=== PATIENT | female | born 1950 | race Caucasian/White ===

== ENCOUNTER 2020-03-15 08:44 | Outpatient (CLI) | payer MEDICARE, SELFPAY ==
--- NOTE | ~2020-03-15 | DEXA_ITS ---
Bone Density Report Name: Kendra Gomes Age: 70 Sex: Female Ethnicity: White Date of : 1950 Indication: postmenopausal; height loss; hysterectomy; Referring Provider: CHADD MONK Study: Bone densitometry was performed. Exam Date: March 15, 2020 Accession number: [id number] Bone Density: Region BMD T-score Z-score Classification AP Spine (L1-L4) 1.136 0.8 3.0 Normal Femoral Neck (Left) 0.705 -1.3 0.6 Osteopenia Total Hip (Left) 0.853 -0.7 0.8 Normal Total Hip Bilateral Avg 0.834 -0.9 0.7 Normal Femoral Neck (Right) 0.669 -1.6 0.2 Osteopenia Total Hip (Right) 0.813 -1.1 0.5 Osteopenia World Health Organization criteria for BMD impression classify patients as: Normal (T-score at or above -1.0), Osteopenia (T-score between -1.0 and -2.5), or Osteoporosis (T-score at or below -2.5). 10-year Fracture Risk(1): Major Osteoporotic Fracture 9.8% Hip Fracture 1.7% Reported Risk Factors: [place] (), Neck BMD=0.669, BMI=22.1 (1) FRAX(R) Version 3.08. Fracture probability calculated for an untreated patient. Fracture probability may be lower if the patient has received treatment. Clinical Information Provided by Patient: Has used the following medications: Calcium Has the following medical conditions: Hysterectomy Patient maximum height was 65 Menopause Age: 40 No regular weight bearing exercise Does not regularly consume dairy products Drinks caffeinated beverages Onset of menses at age 12 Number of children 2 Impression: The patient has low bone mass, based on the Right Femoral Neck T-score. The patient has an estimated ten-year risk of hip fracture of 1.7% and an estimated ten-year risk of major fracture of 9.8%, based on the WHO FRAX algorithm. Discussion: BONE DENSITY IS LOW AT ONE OR MORE SKELETAL SITES. This patient's lowest T-score is low at one or more skeletal sites. It meets the World Health Organization's (WHO) criteria for ?low bone mass? (T-score between -1.0 and -2.5). The patient's 10-year risk of fracture as calculated by FRAX is less than the threshold where pharmacological therapy is recommended by the National Osteoporosis Foundation (NOF). However, all treatment decisions require clinical judgment and consideration of individual patient factors, including patient preferences, comorbidities, previous drug use, risk factors not captured in the FRAX model (e.g., frailty, falls, vitamin D deficiency, increased bone turnover, interval significant decline in bone density) and possible under or overestimation of fracture risk by FRAX. The patient should follow a healthful lifestyle (good nutrition with adequate calcium and vitamin D, and appropriate weight-bearing exercise). Follow-Up: Consider repeating this study in 2 to 3 years to reassess this patient's status, or soon
--- NOTE | ~2020-03-15 | MM_ITS ---
EXAMINATION: MM screening [facility] BI w cullen HISTORY: Screening mammogram TECHNIQUE: Craniocaudal and mediolateral oblique 3-D tomosynthesis images were obtained and synthetic 2-D images were generated. CAD analysis was submitted and interpreted. COMPARISON: 02/13/2019, 02/01/2018 BREAST PARENCHYMAL COMPOSITION: There are scattered areas of fibroglandular density. FINDINGS: There is no evidence of suspicious mass, calcification, or architectural distortion to sugg est malignancy in either breast. There has been no suspicious interval change. IMPRESSION: 1. No mammographic evidence of malignancy. 2. Recommend routine screening mammography in one year. BI-RADS Category 1: Negative Reviewed, dictated and finalized at location A.
== END 2020-03-15 08:45 | disposition home or self-care (01) ==
PROVIDERS: PCP Family Medicine; Visit Provider Family Medicine
DX: Z12.31 Encounter for screening mammogram for malignant neoplasm of breast (principal); Z78.0 Asymptomatic menopausal state; M85.89 Other specified disorders of bone density and structure, multiple sites
CPT/HCPCS: 77063; 77067; 77080

== ENCOUNTER 2020-04-23 10:21 | Outpatient (CLI) | payer MEDICARE, SELFPAY ==
--- NOTE | ~2020-04-23 | MR_ITS ---
EXAMINATION: MR brain/brain stem wo con DATE: 04/23/2020 11:33 INDICATION: Other specified nonpsychotic mental disorders. Disorientation. TECHNIQUE: Magnetic resonance imaging (MRI) of the brain and brainstem was performed without intraven ous contrast. Sequences included sagittal and axial T1-weighted FSE, axial diffusion-weighted FS EPI, axial T2*-weighted GRE, axial T2-weighted FLAIR Propeller, and axial T2-weighted Propeller. Apparent diffusion coefficient (ADC) maps were created. COMPARISON: None. FINDINGS: There is no intracranial hemorrhage, acute infarction, or abnormal intracranial mass lesion . There are scattered areas of nonspecific increased T2-weighted signal intensity in the cerebral whi te matter, which is within normal limits for the patient's age. The ventricles are normal in size. Th e paranasal sinuses are clear. There are likely changes of ocular lens replacement surgeries. The mas toid air cells are normal. IMPRESSION: 1. Normal aging brain. Reviewed, dictated and finalized at location A. IMPRESSION: 1. Normal aging brain.
== END 2020-04-23 10:22 | disposition home or self-care (01) ==
PROVIDERS: PCP Family Medicine; Visit Provider Family Medicine
DX: F48.8 Other specified nonpsychotic mental disorders (principal); R41.0 Disorientation, unspecified
CPT/HCPCS: 70551

== ENCOUNTER 2020-06-23 09:24 | Outpatient (CLI) | payer MEDICARE, SELFPAY ==
--- NOTE | ~2020-06-23 | XR_ITS ---
EXAMINATION: XR chest 2V 06/23/2020 09:48 INDICATION: Chronic fatigue PROCEDURE: PA and lateral views of the chest COMPARISON: 12/07/2016 FINDINGS: The lungs are clear. The cardiomediastinal silhouette is within normal limits. There are no pleural effusions. There is no pneumothorax suspected. IMPRESSION: 1: NO ACUTE CARDIOPULMONARY DISEASE. Reviewed, dictated and finalized at location B. AGENT
== END 2020-06-23 09:25 | disposition home or self-care (01) ==
PROVIDERS: PCP Family Medicine; Visit Provider Family Medicine
DX: R53.82 Chronic fatigue, unspecified (principal)
CPT/HCPCS: 71046

== ENCOUNTER 2021-03-16 08:56 | Outpatient (CLI) | payer MEDICARE, SELFPAY ==
--- NOTE | ~2021-03-16 | MM_ITS ---
EXAMINATION: MM screening [facility] BI w cullen HISTORY: Screening mammogram TECHNIQUE: Craniocaudal and mediolateral oblique 3-D tomosynthesis images were obtained and synthetic 2-D images were generated. CAD analysis was submitted and interpreted. COMPARISON: 03/15/2020, 02/13/2019, 02/01/2018 BREAST PARENCHYMAL COMPOSITION: There are scattered areas of fibroglandular density. FINDINGS: There is no evidence of suspicious mass, calcification, or architectural distortion to sugg est malignancy in either breast. There has been no suspicious interval change. IMPRESSION: 1. No mammographic evidence of malignancy. 2. Recommend routine screening mammography in one year. BI-RADS Category 1: Negative Reviewed, dictated and finalized at location A.
== END 2021-03-16 08:57 | disposition home or self-care (01) ==
PROVIDERS: PCP Family Medicine; Visit Provider Family Medicine
DX: Z12.31 Encounter for screening mammogram for malignant neoplasm of breast (principal)
CPT/HCPCS: 77063; 77067

== ENCOUNTER 2021-05-16 14:25 | Outpatient (CLI) | payer MEDICARE, SELFPAY ==
--- NOTE | ~2021-05-16 | US_ITS ---
EXAMINATION: US carotid duplex BI DATE: 05/16/2021 15:19 INDICATION: Heart problems. Atherosclerosis. TECHNIQUE: Grayscale, color Doppler, and pulsed Doppler images of the cervical carotid arteries were obtained. The degree of vessel stenosis is placed in one of the following categories: normal, <50%, 5 0-69%, >=70% but less than near-occlusion, near-occlusion, or total occlusion. Note that percent sten osis relative to normal distal artery lumen diameter is indirectly measured from velocity measurement s as described by Tanner, et al. Radiology 2003; 229:340-346. Notes: Normal: Peak systolic velocity <125 centimeters/sec and no plaque <50%. Peak systolic velocity <125 ( EDV <40; ICA/CCA PSV ratio <2.0; used these factors only a tandem lesions or low cardiac output or co ntralateral disease) 50-69 %: PSV 125-230 (EDV 40-100; ratio 2-4) >= 70% but less than near occlusion: PSV greater than 230 (EDV > 100; ratio> 4.0) Near Occlusion: PSV that is variable; markedly narrowed lumen Occlusion: Absent flow on color/spectral Doppler and no lumen on arzate scale. COMPARISON: None. FINDINGS: RIGHT: The right common carotid artery (CCA) peak systolic velocity (PSV) is 114 cm/s. The right internal ca rotid artery (ICA) PSV is 96 cm/s. The right ICA end-diastolic velocity (EDV) is 22 cm/s. The right I CA/CCA PSV ratio is 0.8. The external carotid artery (ECA) PSV is 125 cm/s. There is antegrade flow i n the right vertebral artery. LEFT: The left CCA PSV is 116 cm/s. The left ICA PSV is 130 cm/s. The left ICA EDV is 27 cm/s. The left ICA /CCA PSV ratio is 1.1. The ECA PSV is 86 cm/s. There is antegrade flow in the left vertebral artery. IMPRESSION: 1. Less than 50% stenosis in the right internal carotid artery by sonographic criteria. 2. 50-69% stenosis in the left internal carotid artery by sonographic criteria. Reviewed, dictated and finalized at location A. IMPRESSION: 1. Less than 50% stenosis in the right internal carotid artery by sonographic c riteria. 2. 50-69% stenosis in the left internal carotid artery by sonographic criteria.
== END 2021-05-16 14:26 | disposition home or self-care (01) ==
PROVIDERS: PCP Family Medicine; Visit Provider Family Medicine
DX: R09.89 Other specified symptoms and signs involving the circulatory and respiratory systems (principal); I65.23 Occlusion and stenosis of bilateral carotid arteries
CPT/HCPCS: 93880

== ENCOUNTER 2021-10-06 08:30 | Emergency (ER) | payer MEDICARE, SELFPAY ==
--- NOTE | ~2021-10-06 | XR_ITS ---
EXAMINATION: XR chest 2V DATE: 10/06/2021 09:03 INDICATION: Cough and wheezing. TECHNIQUE: Frontal and lateral views of the chest were obtained. COMPARISON: Chest 2 views 06/23/2020 FINDINGS: There is mild scarring at right lung apex. No pleural effusion or pneumothorax. The heart s ize is normal. Surgical clips in the right upper quadrant are likely from cholecystectomy. IMPRESSION: 1. Stable mild scarring at right lung apex. Reviewed, dictated and finalized at location A.
--- NOTE | 2021-10-06 08:33 | ED.URI ---
HPI - URI/Sore Throat General Chief Complaint: Upper Respiratory Infection Stated Complaint: scratchy throat wheezing Time Seen by Provider: 10/06/21 08:33 Source: patient and RN notes reviewed History of Present Illness HPI Narrative: Patient is 71-year-old female who presents the urgent care with complaints of chronic cough. Patient states that 1 month ago she was seen at her primary care office and given 10 days of Levaquin. Patient was told that if the Levaquin does not clear the cough in a few days to start the steroid regimen. Patient states after the steroid she felt much better. However, 2 days ago her symptoms returned and she feels that she has wheezing at night and a scratchy throat due to the cough. Patient denies of any fever. Denies of any ill contacts. Denies of shortness of breath or chest pain. No other acute complaints. No acute distress noted. Patient aware of the plan of care. Some parts of this dictation were generated by voice recognition software and may contain typographical and/or grammatical inaccuracies. Related Data Home Medications Medication Instructions Recorded Confirmed multivitamin with minerals-iron mg PO 06/10/19 09/12/21 fumarate 9 mg iron/15 mL oral liquid Allergies Allergy/AdvReac Type Severity Reaction Status Date / Time amoxicillin Allergy Intermediate rash Verified 10/06/21 08:50 doxycycline Allergy Intermediate rash Verified 10/06/21 08:50 Review of Systems Review of Systems: CONSTITUTIONAL: Denies fever, chills, or sweats. EYES: Denies visual changes, redness, or discharge. ENT: Denies rhinorrhea, congestion, otalgia. Reports of scratchy throat CARDIOVASCULAR: Denies chest pain, palpitations, or edema. RESPIRATORY: Reports of cough, difficulty taking a deep breath, and wheezing GASTROINTESTINAL: Denies abdominal pain, nausea, vomiting, or diarrhea. GENITOURINARY: Denies dysuria or hematuria. SKIN: Denies rash or itching. MUSCULOSKELETAL: Denies back pain, joint pain, or myalgia. NEUROLOGIC: Denies headache, numbness, or weakness. All other systems reviewed are negative, except as documented in HPI. 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 Diabetes Dysfunctional gallbladder Fatty liver Hot flashes Hypothyroidism (acquired) Mixed hyperlipidemia PAD (peripheral artery disease) Ulcerative colitis Surgical History Surgical History S/P cholecystectomy S/P hysterectomy Family History Family History Mother Hypertension Cerebrovascular accident Social History Social History Social History: Second hand tobacco smoke exposure: No Alcohol intake: current Alcohol use details: Occasionally Substance use: never Substance use type: does not use Gender identity (if verbalized by the patient): Female Sexual Orientation (if Verbalized by the Patient): Straight or Heterosexual Comments At the time of my signature, I reviewed and agree with the nursing past medical, surgical, social, and family history. There is no relevant family history pertinent to the patient complaint. Exam Narrative: GENERAL: This is a well-nourished, well-developed patient, in no apparent distress. HEAD: normocephalic, atraumatic. EYES: PERRL. Sclera clear/white. Vision is grossly intact. EARS: External ears normal, auditory canals clear and without drainage, TMs normal without perforation. Hearing grossly intact. NOSE: External nose normal with no obvious nasal discharge, nares without redness, no rhinorrhea. THROAT: Mucous membranes moist, posterior pharynx clear. NECK: Neck supple, non-tender without lymphadenopathy, masses or thyromegaly. CARDIOVASCULAR: Regular rate and rhythm without murmurs, gallops, or rubs. RES
[2021-10-06 08:36] VITALS: BP 148/65; PULSE 78; RESP 20; TEMP 36.7; O2SAT 100
== END 2021-10-06 09:35 | disposition home or self-care (01) ==
PROVIDERS: Emergency Provider Nurse Practitioner Family; PCP Family Medicine
DX: J42 Unspecified chronic bronchitis (principal); E11.9 Type 2 diabetes mellitus without complications; K76.0 Fatty (change of) liver, not elsewhere classified; E03.9 Hypothyroidism, unspecified; E78.2 Mixed hyperlipidemia; I73.9 Peripheral vascular disease, unspecified; I65.29 Occlusion and stenosis of unspecified carotid artery
CPT/HCPCS: 71046; 99213; G0463

== ENCOUNTER 2022-05-10 09:44 | Outpatient (CLI) | payer MEDICARE, SELFPAY ==
--- NOTE | ~2022-05-10 | DEXA_ITS ---
Bone Density Report Name: YELITZA LYNCH Age: 72 Sex: Female Ethnicity: White Date of : 1950 Indication: osteopenia; inflammatory bowel disease; history of glucocorticoids; hysterectomy; Referring Provider: VENKAT ESPINAL Study: Bone densitometry was performed. Exam Date: May 10, 2022 Accession number: [id number] Bone Density: Region BMD T-score Z-score Classification AP Spine(L1-L4) 1.202 1.4 3.7 Normal Femoral Neck (Left) 0.720 -1.2 0.8 Osteopenia Total Hip (Left) 0.885 -0.5 1.2 Normal Femoral Neck (Right) 0.698 -1.4 0.6 Osteopenia Total Hip (Right) 0.828 -0.9 0.8 Normal Total Hip Mean 0.856 -0.7 1.0 Normal World Health Organization criteria for BMD impression classify patients as: Normal (T-score at or above -1.0), Osteopenia (T-score between -1.0 and -2.5), or Osteoporosis (T-score at or below -2.5). 10-year Fracture Risk(1): Major Osteoporotic Fracture 16% Hip Fracture 3.0% Reported Risk Factors: [place] (), Neck BMD=0.698, BMI=25.5, glucocorticoids (1) FRAX(R) Version 3.08. Fracture probability calculated for an untreated patient. Fracture probability may be lower if the patient has received treatment. Previous Exams: Region Exam Age BMD T-score BMD Change BMD Change Date g/cm2 vs Baseline vs Previous AP Spine (L1-L4) 05/10/2022 72 1.202 1.4 0.065 (5.7%)* 0.065 (5.7%)* 03/15/2020 70 1.136 0.8 Total Hip(Left) 05/10/2022 72 0.885 -0.5 0.032 (3.7%)* 0.032 (3.7%)* 03/15/2020 70 0.853 -0.7 Total Hip(Right) 05/10/2022 72 0.828 -0.9 0.015 (1.8%) 0.015 (1.8%) 03/15/2020 70 0.813 -1.1 *Denotes significance at 95% confidence level, LSC for AP Spine = 0.022 g/cm2, LSC for Total Hip = 0.027 g/cm2 Clinical Information Provided by Patient: Has taken Glucocorticoids Has used the following medications: Vitamin D, Calcium Has the following medical conditions: Inflammatory bowel diseases, Hysterectomy Patient maximum height was 63 Menopause Age: 40 No regular weight bearing exercise Drinks caffeinated beverages Onset of menses at age 12 Number of children 1 Impression: The patient has low bone mass, based on the Right Femoral Neck T-score. The patient has an estimated ten-year risk of hip fracture of 3% and an estimated ten-year risk of major fracture of 16%, based on the WHO FRAX algorithm. The patient has risk factors, including: history of glucocorticoid thera
--- NOTE | ~2022-05-10 | MM_ITS ---
EXAMINATION: MM screening [facility] BI w cullen HISTORY: Screening TECHNIQUE: Craniocaudal and mediolateral oblique 3-D tomosynthesis images were obtained and synthetic 2-D images were generated. CAD analysis was submitted and interpreted. COMPARISON: Comparison to multiple prior studies sequentially, with oldest reviewed study dated 02/01. BREAST PARENCHYMAL COMPOSITION: There are scattered areas of fibroglandular density. FINDINGS: There is no evidence of suspicious mass, calcification, or architectural distortion to sugg est malignancy in either breast. There has been no suspicious interval change. IMPRESSION: 1. No mammographic evidence of malignancy. 2. Recommend routine screening mammography in one year. BI-RADS Category 1: Negative Reviewed, dictated and finalized at location A.
== END 2022-05-10 09:45 | disposition home or self-care (01) ==
PROVIDERS: PCP Family Medicine; Visit Provider Family Medicine
DX: Z12.31 Encounter for screening mammogram for malignant neoplasm of breast (principal); Z78.0 Asymptomatic menopausal state; M85.852 Other specified disorders of bone density and structure, left thigh; M85.851 Other specified disorders of bone density and structure, right thigh
CPT/HCPCS: 77063; 77067; 77080

== ENCOUNTER 2022-06-01 10:04 | Outpatient (CLI) | payer MEDICARE, SELFPAY ==
--- NOTE | ~2022-06-01 | US_ITS ---
EXAMINATION: US abdomen limited DATE: 06/01/2022 10:43 INDICATION: Fatty change of the liver, not elsewhere classified TECHNIQUE: Multiple grayscale and Doppler ultrasound images of the abdomen were obtained. COMPARISON: None available FINDINGS: Bowel gas obscures visualization of the pancreas. The visualized portions of the pancreas a re unremarkable. The liver demonstrates increased echogenicity, heterogenous echotexture, and decreas ed through transmission. No surface nodularity. Normal hepatopetal flow in the main portal vein. The gallbladder is surgically absent. The normal common bile duct measures 3 mm. IMPRESSION: 1. Diffuse hepatic steatosis. Reviewed, dictated and finalized at location B. E HANGER
== END 2022-06-01 10:05 | disposition home or self-care (01) ==
PROVIDERS: PCP Family Medicine; Visit Provider Family Medicine
DX: K51.00 Ulcerative (chronic) pancolitis without complications (principal); K76.0 Fatty (change of) liver, not elsewhere classified; R74.8 Abnormal levels of other serum enzymes
CPT/HCPCS: 76705

== ENCOUNTER 2022-08-16 08:00 | Outpatient (NON) | payer MEDICARE, SELFPAY | END 2022-08-16 08:01 | disposition home or self-care (01) | PROVIDERS: PCP Family Medicine; Visit Provider Internal Medicine Gastroenterology | DX: K51.00 Ulcerative (chronic) pancolitis without complications (principal) | CPT/HCPCS: 88305 ==

== ENCOUNTER 2022-08-16 10:38 | Day surgery (SDC) | payer MEDICARE, SELFPAY ==
[2022-05-25 14:42] VITALS: BMI 25.7
[2022-08-03 13:38] VITALS: BMI 25.4
--- NOTE | 2022-08-16 09:35 | WPDANESEPPF ---
Anes - Initial Pre Proc Eval Procedure: Operation Date: 08/16/22 12:30 Proposed Procedures p Diagnostic Colonoscopy with possible Chromoendoscopy - Nolan Lake MD Date/Time: 08/16/22 09:35 Surgeon: Nolan Lake MD Pre Op Diagnosis: Ulcerative Pancolitis Patient Data Age: 72 Gender: F Height: 1.6 m Weight: 65 kg Allergies Allergy/AdvReac Type Severity Reaction Status Date / Time salicylic acid Allergy Fatigued Verified 08/16/22 11:07 Home Medications Medication Instructions Recorded Confirmed Type lisinopril 20 mg tablet 20 mg PO DAILY #90 tabs 12/13/21 08/16/22 Rx levothyroxine 50 mcg tablet 50 mcg PO DAILY #90 tabs 12/19/21 08/16/22 Rx budesonide 3 mg 6 mg PO DAILY #60 ea 04/06/22 08/16/22 Rx capsule,delayed,extended release metoprolol tartrate 25 mg tablet See Rx Instructions .Route 04/26/22 08/16/22 Rx .COMPLEX #60 tabs colestipol 1 gram tablet See Rx Instructions .Route 05/25/22 08/16/22 Rx .COMPLEX #60 tabs multivitamin x-prztdrua-wuilgmf 1 tablet PO DAILY 05/25/22 08/16/22 History fumarate 18 mg-vitamin K 25 mcg tablet pantoprazole 40 mg tablet,delayed See Rx Instructions .Route 06/28/22 08/16/22 Rx release .COMPLEX #90 tabs dextroamphetamine-amphetamine 10 15 mg PO DAILY #60 tabs 07/31/22 08/16/22 Rx mg tablet (Adderall) cholecalciferol (vitamin D3) 10 10 mcg PO DAILY 08/03/22 08/16/22 History mcg (400 unit) capsule (Vitamin D3) estradiol 0.075 mg/24 hr 1 patch transdermal 2XW 08/03/22 08/16/22 History semiweekly transdermal patch glipizide 5 mg tablet, extended 2.5 mg PO DAILY 08/03/22 08/16/22 History release 24 hr sitagliptin phosphate 100 mg 100 mg PO DAILY 08/03/22 08/16/22 History tablet (Januvia) Patient hx anesthesia problems: none Family hx anesthesia problems: none Results Review: All pre-operative results and documents have been reviewed as part of the pre-operative evaluation. 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 Chronic cholecystitis without calculus Decreased pedal pulses Diabetes Diabetes mellitus with peripheral angiopathy Diarrhea due to drug DMII (diabetes mellitus, type 2) Dysfunctional gallbladder Encounter for surgical aftercare following surgery on the digestive system Essential (primary) hypertension Fatty liver Hot flashes Hypothyroidism (acquired) Menopausal and perimenopausal disorder Mixed hyperlipidemia Mixed hyperlipidemia OAB (overactive bladder) PAD (peripheral artery disease) PAD (peripheral artery disease) Pain in both feet Pollen allergies Psychophysiological insomnia Pure hypercholesterolemia RUQ pain Seasonal allergies Symptomatic menopausal or female climacteric states Type 2 diabetes mellitus without complications Ulcerative chronic pancolitis without complications Ulcerative colitis Ulcerative colitis, unspecified, without complications Wax in ear Surgical History Surgical History S/P cholecystectomy S/P hysterectomy Family History Family History Mother Hypertension Cerebrovascular accident Social History Social History (Updated 06/20/22 @ 09:01 by Jolanta Sibley) Social History: Smoking status: Never smoker Second hand tobacco smoke exposure: No Alcohol intake: current Alcohol use details: Occasionally Substance use: never Substance use type: does not use Living arrangements: with family Occupation/Education: retired Gender identity (if verbalized by the patient): Female Sexual Orientation (if Verbalized by the Patient): Straight or Heterosexual Spiritual care concerns: No Anes - Eval Final PreProcedure Day of P
[2022-08-16 11:00] VITALS: BP 151/104; PULSE 113; RESP 16; TEMP 36.3; O2SAT 100
[2022-08-16 11:22] LABS: Glucose Point of Care 153 mg/dl (65-105)
[2022-08-16] MEDS: LACTATED RINGERS 1,000 ML 150 ML IV CONT (11:23)
--- NOTE | 2022-08-16 11:38 | PM.HPGS ---
History of Present Illness History of Present Illness Consent: Risks, benefits, and alternatives have been discussed and questions answered. Patient agrees to proceed with procedure. Chief complaint: Ulcerative Pancolitis Narrative: Kendra Gomes is a 72 year old female diagnosed with UC in 1967, using budesonide and colestipol, on remission. Last colonoscopy 1.5-2 years ago. Review of Systems Constitutional: Constitutional: Denies headache(s) and Denies weakness Eyes: Eyes: Denies blurry vision ENT: Reports Normal hearing present, Denies headache(s) and Denies neck pain Cardiovascular: Cardiovascular: Denies chest pain and Denies dyspnea Respiratory: Respiratory: Denies dyspnea Gastrointestinal: Gastrointestinal: Reports no additional gastrointestinal complaints Genitourinary: Genitourinary: Denies dysuria Musculoskeletal: Musculoskeletal: Denies neck pain Integumentary/Breasts: Skin/Breast: Denies dry skin Neurologic: Reports Normal hearing present, Denies headache(s) and Denies weakness Psychiatric: Psychiatric: Denies anxiety Endocrine: Endocrine: Denies change in body appearance Hematologic/Lymphatic: Hematologic/Lymphatic: Denies easy bleeding Allergic/Immunologic: Allergic/Immunologic: Denies urticaria PMFSH Past Medical History Medical History Acute bronchitis due to other specified organisms Acute non-recurrent maxillary sinusitis Anorexia Breast screening 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 Chronic cholecystitis without calculus Decreased pedal pulses Diabetes Diabetes mellitus with peripheral angiopathy Diarrhea due to drug DMII (diabetes mellitus, type 2) Dysfunctional gallbladder Encounter for surgical aftercare following surgery on the digestive system Essential (primary) hypertension Fatty liver Hot flashes Hypothyroidism (acquired) Menopausal and perimenopausal disorder Mixed hyperlipidemia Mixed hyperlipidemia OAB (overactive bladder) PAD (peripheral artery disease) PAD (peripheral artery disease) Pain in both feet Pollen allergies Psychophysiological insomnia Pure hypercholesterolemia RUQ pain Seasonal allergies Symptomatic menopausal or female climacteric states Type 2 diabetes mellitus without complications Ulcerative chronic pancolitis without complications Ulcerative colitis Ulcerative colitis, unspecified, without complications Wax in ear Surgical History Surgical History S/P cholecystectomy S/P hysterectomy Family History Family History Mother Hypertension Cerebrovascular accident Social History Social History (Updated 06/20/22 @ 09:01 by Jolanta Sibley) Social History: Smoking status: Never smoker Second hand tobacco smoke exposure: No Alcohol intake: current Alcohol use details: Occasionally Substance use: never Substance use type: does not use Living arrangements: with family Occupation/Education: retired Gender identity (if verbalized by the patient): Female Sexual Orientation (if Verbalized by the Patient): Straight or Heterosexual Spiritual care concerns: No Meds Home Medications and Allergies Home Medications Medication Instructions Recorded Confirmed Type lisinopril 20 mg tablet 20 mg PO DAILY #90 tabs 12/13/21 08/16/22 Rx levothyroxine 50 mcg tablet 50 mcg PO DAILY #90 tabs 12/19/21 08/16/22 Rx budesonide 3 mg 6 mg PO DAILY #60 ea 04/06/22 08/16/22 Rx capsule,delayed,extended release metoprolol tartrate 25 mg tablet See Rx Instructions .Route 04/26/22 08/16/22 Rx .COMPLEX #60 tabs colestipol 1 gram tablet See Rx Instructions .Route 05/25/22 08/16/22 Rx .COMPLEX #60 tabs multivitamin z-fawkjkro-osofiwm 1 tablet PO DAILY 05/25/22 08/16/22 History fumarate 18 mg-vitamin K 25 mcg tablet pantoprazole 40 mg tablet,delayed See Rx Instructions .Rou
[2022-08-16] MEDS: METHYLENE BLUE 0.5% INJ 10 ML AMPULE IRRIGATION (12:03)
[2022-08-16 12:07] VITALS: BP 165/62; PULSE 90; RESP 18; O2SAT 99
[2022-08-16 12:17] VITALS: BP 143/67; PULSE 82; RESP 20; O2SAT 99
[2022-08-16 12:27] VITALS: BP 141/66; PULSE 79; RESP 20; O2SAT 99
--- NOTE | 2022-08-16 12:49 | WPDANESPN ---
Anes - Prog Note Post-Op Date/Time: 08/16/22 12:49 Cardiovascular status: normal Respiratory status: normal Airway patency: baseline Mental status: baseline Post-Op hydration status: normal Vital Signs: Last Vital Signs Temp 36.3 C L 08/16/22 11:00 Pulse 82 08/16/22 12:17 Resp 20 08/16/22 12:17 BP 143/67 H 08/16/22 12:17 Pulse Ox 99 08/16/22 12:17 O2 Del Method Room Air 08/16/22 12:17 Pain Score (VAS): 0 I/O: Intake & Output 08/15/22 08/16/22 08/16/22 23:59 07:59 15:59 Intake Total 300 Balance 300 08/16/22 11:20 POC Capillary Glucose 153 H Post-procedural complaints: none Patient Feedback: Patient satisfied with anesthetic care.
== END 2022-08-16 12:52 | disposition home or self-care (01) ==
PROVIDERS: PCP Family Medicine; Visit Provider Internal Medicine Gastroenterology
PROC: 0DJD8ZZ Inspection of Lower Intestinal Tract, Via Natural or Artificial Opening Endoscopic (ICD-10-PCS; CPT 45378; principal; 2022-08-16 12:30)
DX: K51.00 Ulcerative (chronic) pancolitis without complications (principal)
CPT/HCPCS: 45380

== ENCOUNTER 2023-04-12 10:02 | Outpatient (CLI) | payer MEDICARE, SELFPAY ==
[2023-04-12 10:38] LABS: Hematocrit 42.1 % (37.0-47.0); Hemoglobin 13.4 g/dL (12.0-15.0); Mean Corpuscular HGB Conc 31.8 g/dl (32-36); Mean Corpuscular Hemoglobin 31.5 pg (26-34); Mean Corpuscular Volume 99.1 fl (80-100); Mean Platelet Volume 9.1 fl (7.4-10.4); Platelet Count Result 221 k/mm3 (150-375); Red Blood Count 4.25 M/mm3 (4.2-5.4); Red Cell Distribution Width 13.2 % (11.5-14.5); White Blood Count 6.6 K/mm3 (4.5-10.0)
[2023-04-12 11:19] LABS: Alanine Aminotransferase 47 U/L (6-35); Albumin Level 4.1 g/dL (3.5-5.1); Alkaline Phosphatase 73 U/L (38-126); Anion Gap 6 mmol/L (8-16); Aspartate Amino Transferase 59 U/L (14-36); Bilirubin,Total 0.4 mg/dL (0.2-1.3); Blood Urea Nitrogen 17 mg/dL (7-17); CRP < 0.5 mg/dL (<1.0); Calcium 9.2 mg/dL (8.4-10.2); Carbon Dioxide 29 mmol/L (22-30); Chloride 104 mmol/L (98-107); Estimated Glomerular Filt Rate > 60; Glucose 157 mg/dL (65-110); Potassium 4.5 mmol/L (3.4-5.0); Sodium 139 mmol/L (137-145)
[2023-04-12 11:48] LABS: Erythrocyte Sedimentation Rate 16 mm/hr (0-20)
== END 2023-04-12 10:03 | disposition home or self-care (01) ==
PROVIDERS: PCP Family Medicine; Visit Provider Nurse Practitioner
DX: K51.00 Ulcerative (chronic) pancolitis without complications (principal)
CPT/HCPCS: 36415; 80053; 85027; 85652; 86140

== ENCOUNTER 2023-05-25 11:49 | Outpatient (CLI) | payer MEDICARE, SELFPAY ==
[2023-05-25 12:57] LABS: CRP < 0.5 mg/dL (<1.0)
[2023-05-25 14:43] LABS: Hematocrit 41.9 % (37.0-47.0); Hemoglobin 13.6 g/dL (12.0-15.0); Mean Corpuscular HGB Conc 32.5 g/dl (32-36); Mean Corpuscular Hemoglobin 31.1 pg (26-34); Mean Corpuscular Volume 95.9 fl (80-100); Mean Platelet Volume 9.5 fl (7.4-10.4); Platelet Count Result 268 k/mm3 (150-375); Red Blood Count 4.37 M/mm3 (4.2-5.4); Red Cell Distribution Width 13.3 % (11.5-14.5); White Blood Count 7.4 K/mm3 (4.5-10.0)
[2023-05-25 15:38] LABS: Erythrocyte Sedimentation Rate 16 mm/hr (0-20)
== END 2023-05-25 11:50 | disposition home or self-care (01) ==
LOC: ANHLAB 11:52
PROVIDERS: PCP Family Medicine; Visit Provider Nurse Practitioner
DX: K51.00 Ulcerative (chronic) pancolitis without complications (principal); K62.5 Hemorrhage of anus and rectum
CPT/HCPCS: 36415; 85027; 85652; 86140

== ENCOUNTER 2023-05-30 10:25 | Outpatient (CLI) | payer MEDICARE, SELFPAY ==
[2023-06-06 18:24] LABS: Calprotectin, Stool 15 mcg/g
== END 2023-05-30 10:26 | disposition home or self-care (01) ==
PROVIDERS: PCP Family Medicine; Visit Provider Nurse Practitioner
DX: K62.5 Hemorrhage of anus and rectum (principal); K51.00 Ulcerative (chronic) pancolitis without complications
CPT/HCPCS: 83993

== ENCOUNTER 2023-08-06 12:14 | Outpatient (CLI) | payer MEDICARE, SELFPAY ==
[2023-08-06 13:05] LABS: CRP < 0.5 mg/dL (<1.0)
[2023-08-06 14:15] LABS: Erythrocyte Sedimentation Rate 21 mm/hr (0-20)
== END 2023-08-06 12:15 | disposition home or self-care (01) ==
PROVIDERS: PCP Family Medicine; Visit Provider Nurse Practitioner
DX: K62.5 Hemorrhage of anus and rectum (principal); K51.00 Ulcerative (chronic) pancolitis without complications
CPT/HCPCS: 36415; 85652; 86140

== ENCOUNTER 2023-08-08 12:06 | Outpatient (CLI) | payer MEDICARE, SELFPAY ==
[2023-08-14 21:22] LABS: Calprotectin, Stool 659 mcg/g
== END 2023-08-08 12:07 | disposition home or self-care (01) ==
LOC: ANHLAB 12:08
PROVIDERS: PCP Family Medicine; Visit Provider Nurse Practitioner
DX: K62.5 Hemorrhage of anus and rectum (principal); K51.00 Ulcerative (chronic) pancolitis without complications
CPT/HCPCS: 83993

== ENCOUNTER 2023-09-26 11:12 | Outpatient (CLI) | payer MEDICARE, SELFPAY ==
[2023-09-26 12:52] LABS: Hepatitis B Surface Antigen Negative (Negative)
[2023-09-26 12:58] LABS: HAV RESULT Negative (Negative); Hepatitis B Core IgM Result Negative (Negative)
[2023-09-26 13:09] LABS: Hepatitis B Surface Anti Res Negative; Hepatitis C Virus Antibody Negative (Negative)
[2023-09-28 12:03] LABS: NIL 0.01 IU/mL; Quantiferon TB Plus, 1T NEGATIVE (NEGATIVE)
[2023-09-29 03:54] LABS: Hepatitis B Core Ab Total Nonreactive (Nonreactive)
== END 2023-09-26 11:13 | disposition home or self-care (01) ==
PROVIDERS: PCP Family Medicine; Visit Provider Nurse Practitioner
DX: R53.83 Other fatigue (principal); K51.00 Ulcerative (chronic) pancolitis without complications; Z79.899 Other long term (current) drug therapy; Z11.59 Encounter for screening for other viral diseases
CPT/HCPCS: 36415; 80074; 86480; 86704; 86706; 87340

== ENCOUNTER 2023-10-03 09:24 | Outpatient (CLI) | payer MEDICARE, SELFPAY ==
--- NOTE | ~2023-10-03 | MM_ITS ---
EXAMINATION: MM screening [facility] BI w cullen HISTORY: Screening mammogram TECHNIQUE: Craniocaudal and mediolateral oblique 3-D tomosynthesis images were obtained and synthetic 2-D images were generated. CAD analysis was submitted and interpreted. COMPARISON: 05/10/2022, 03/16/2021, 03/15/2020 BREAST PARENCHYMAL COMPOSITION:Not Dense. There are scattered areas of fibroglandular density. FINDINGS: No suspicious mass, calcification, or architectural distortion are identified in either anh ast to suggest malignancy. There has been no suspicious interval change. IMPRESSION: No mammographic evidence of malignancy. Recommend routine screening mammography in one year. BI-RADS Category 1: Negative Reviewed, dictated and finalized at location .
== END 2023-10-03 09:25 | disposition home or self-care (01) ==
LOC: ANHIMG 09:27
PROVIDERS: PCP Family Medicine; Visit Provider Family Medicine
DX: Z12.31 Encounter for screening mammogram for malignant neoplasm of breast (principal)
CPT/HCPCS: 77063; 77067

== ENCOUNTER 2023-11-06 00:46 | Day surgery (SDC) | payer MEDICARE, SELFPAY ==
[2023-10-30 10:04] VITALS: BMI 25.0
[2023-11-06 11:17] VITALS: BP 137/62; PULSE 76; RESP 18; TEMP 36.3; O2SAT 100
[2023-11-06] MEDS: LACTATED RINGERS 1,000 ML 150 ML IV CONT (11:30)
[2023-11-06 11:36] LABS: Glucose Point of Care 126 mg/dl (65-105)
--- NOTE | 2023-11-06 11:53 | WPDANESEPPF ---
Anes - Initial Pre Proc Eval Procedure: Operation Date: 11/06/23 12:30 Proposed Procedures p Flexible Sigmoidoscopy - Nolan Lake MD Date/Time: 11/06/23 11:53 Surgeon: Nolan Lake MD Pre Op Diagnosis: Ulcerative (chronic) pancolitis Patient Data Age: 73 Gender: F Height: 1.6 m Weight: 64.5 kg Last Vital Signs Temp 97.4 F L 11/06/23 11:17 Pulse 76 11/06/23 11:17 Resp 18 11/06/23 11:17 BP 137/62 11/06/23 11:17 Pulse Ox 100 11/06/23 11:17 O2 Del Method Room Air 11/06/23 11:17 Allergies Allergy/AdvReac Type Severity Reaction Status Date / Time salicylic acid Allergy Fatigued Verified 11/06/23 11:15 Home Medications Medication Instructions Recorded Confirmed Type multivitamin s-gcxzsirw-wwdllhf 1 tablet PO DAILY 05/25/22 11/02/23 History fumarate 18 mg-vitamin K 25 mcg tablet cholecalciferol (vitamin D3) 10 10 mcg PO DAILY 08/03/22 11/02/23 History mcg (400 unit) capsule (Vitamin D3) pen needle, diabetic 32 gauge x #1,200 ea 05/31/23 11/02/23 Rx 5/32 (BD Skylar 2nd Gen Pen Needle) pravastatin 20 mg tablet See Rx Instructions .Route 06/22/23 11/02/23 Rx .COMPLEX #90 tabs pen needle, diabetic 32 gauge x #100 ea 07/02/23 11/02/23 Rx 5/32 (Aqinject Pen Needle) blood sugar diagnostic (OneTouch #100 ea 07/27/23 11/02/23 Rx Ultra Test strips) blood-glucose sensor (FreeStyle #2 ea 08/28/23 11/02/23 Rx Melisa 3 Sensor device) lisinopril 20 mg tablet See Rx Instructions .Route 08/30/23 11/02/23 Rx .COMPLEX #90 tabs pantoprazole 40 mg tablet,delayed See Rx Instructions .Route 09/18/23 11/02/23 Rx release .COMPLEX #100 tabs sitagliptin phosphate 100 mg See Rx Instructions .Route 09/20/23 11/02/23 Rx tablet (Januvia) .COMPLEX #100 tabs mesalamine rectal susp enema with 4 g (60 mL) RECTAL QHS 8 weeks #60 09/26/23 11/06/23 Rx cleansing wipes 4 gram/60 mL kit ea (Rowasa rectal suspension enema) dextroamphetamine-amphetamine 10 15 mg PO DAILY #60 tabs 10/08/23 11/02/23 Rx mg tablet (Adderall) metoprolol tartrate 25 mg tablet See Rx Instructions .Route 10/10/23 11/02/23 Rx .COMPLEX #100 tabs B-complex with vitamin C 1 cap PO DAILY 10/30/23 11/02/23 History L.acidop,casei,lactis,rham-B.lact,annie 1 cap PO DAILY 10/30/23 11/06/23 History 625 mg (10 billion cell) capsule (Advanced Probiotic) colestipol 1 gram tablet (Colestid) See Rx Instructions .Route .COMPLEX 10/30/23 11/02/23 History cranberry 500 mg capsule 500 mg PO DAILY 10/30/23 11/02/23 History estradiol 0.05 mg/24 hr semiweekly 1 patch transdermal WEEKLY 10/30/23 11/02/23 History transdermal patch ferrous sulfate 325 mg (65 mg 325 mg PO DAILY 10/30/23 11/02/23 History iron) tablet (Iron (ferrous sulfate)) inulin-sorbitol 2 gram chewable 1 tablet PO DAILY 10/30/23 11/06/23 History tablet mirtazapine 15 mg tablet 15 mg PO QHS #90 tabs 11/02/23 11/06/23 Rx insulin aspart U-100 100 unit/mL See Rx Instructions .Route 11/05/23 11/06/23 Rx (3 mL) subcutaneous pen .COMPLEX #15 mL insulin glargine 100 unit/mL (3 See Rx Instructions .Route 11/06/23 11/06/23 Rx mL) subcutaneous pen (Basaglar .COMPLEX #15 mL KwikPen U-100 Insulin) Laboratory Tests 11/06/23 11:31 POC Capillary Glucose 126 H mg/dl (65-105) Patient hx anesthesia problems: none Family hx anesthesia problems: none Results Review: All pre-operative results and documents have been reviewed as part of the pre-operative evaluation. 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
--- NOTE | 2023-11-06 12:13 | PM.HPGS ---
History of Present Illness History of Present Illness Consent: Risks, benefits, and alternatives have been discussed and questions answered. Patient agrees to proceed with procedure. Chief complaint: Ulcerative (chronic) pancolitis Narrative: Kendra Gomes is a 73 year old female with ulcerative colitis-diagnosed in 1967.? Has been maintained on budesonide 6 mg daily and mesalamine 4.8 g daily but not taking anymore- that cause brain fog and discontinued. She is biologic naive. She experienced rectal bleeding again and here for sigmoidoscopy. 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 Chronic cholecystitis without calculus Decreased pedal pulses Diabetes Diabetes mellitus with peripheral angiopathy Diarrhea Diarrhea due to drug Diverticula of colon DMII (diabetes mellitus, type 2) Dysfunctional gallbladder Encounter for surgical aftercare following surgery on the digestive system Essential (primary) hypertension Fatty liver GERD (gastroesophageal reflux disease) Hot flashes Hypothyroidism (acquired) Long-term current use of ustekinumab Menopausal and perimenopausal disorder Mixed hyperlipidemia Mixed hyperlipidemia Need for hepatitis B screening test OAB (overactive bladder) PAD (peripheral artery disease) PAD (peripheral artery disease) Pain in both feet Pollen allergies Psychophysiological insomnia Pure hypercholesterolemia Rectal bleeding RUQ pain Seasonal allergies Symptomatic menopausal or female climacteric states Type 2 diabetes mellitus without complications Ulcerative chronic pancolitis without complications Ulcerative colitis Ulcerative colitis, unspecified, without complications Wax in ear Surgical History Surgical History S/P cholecystectomy S/P hysterectomy Family History Family History Mother Hypertension Cerebrovascular accident Social History Social History Social History: Smoking status: Never smoker Second hand tobacco smoke exposure: No Alcohol intake: former Alcohol use details: Occasionally Substance use: current Substance use type: marijuana Other substance usage details: for sleep Do You Feel Safe in your Home?: Yes Lack of Transportation: No Lack of Food: Never True Current Housing: I Have Housing Concerned About Future Housing: No Difficulty Paying Gas/Electric Bills: No Difficulty Paying for Meds: No Currently Unemployed: YES Education: Decline to Answer Difficulty w/ Childcare or Family Care: No Living arrangements: with family Occupation/Education: retired Gender identity (if verbalized by the patient): Female Sexual Orientation (if Verbalized by the Patient): Straight or Heterosexual Spiritual care concerns: No Meds Home Medications and Allergies Home Medications Medication Instructions Recorded Confirmed Type multivitamin v-eyyieksp-tjutcoe 1 tablet PO DAILY 05/25/22 11/02/23 History fumarate 18 mg-vitamin K 25 mcg tablet cholecalciferol (vitamin D3) 10 10 mcg PO DAILY 08/03/22 11/02/23 History mcg (400 unit) capsule (Vitamin D3) pen needle, diabetic 32 gauge x #1,200 ea 05/31/23 11/02/23 Rx (BD Skylar 2nd Gen Pen Needle) pravastatin 20 mg tablet See Rx Instructions .Route 06/22/23 11/02/23 Rx .COMPLEX #90 tabs pen needle, diabetic 32 gauge x #100 ea 07/02/23 11/02/23 Rx (Aqinject Pen Needle) blood sugar diagnostic (OneTouch #100 ea 07/27/23
[2023-11-06 12:30] VITALS: BP 110/40; PULSE 74; RESP 18; O2SAT 98
[2023-11-06 12:40] VITALS: BP 116/48; PULSE 69; RESP 18; O2SAT 100
[2023-11-06 12:46] LABS: Glucose Point of Care 103 mg/dl (65-105)
[2023-11-06 12:49] VITALS: BP 117/45; PULSE 71; RESP 18; O2SAT 99
== END 2023-11-06 13:08 | disposition home or self-care (01) ==
PROVIDERS: PCP Family Medicine; Visit Provider Internal Medicine Gastroenterology
PROC: 0DJD8ZZ Inspection of Lower Intestinal Tract, Via Natural or Artificial Opening Endoscopic (ICD-10-PCS; CPT 45330; principal; 2023-11-06 12:30)
DX: K51.20 Ulcerative (chronic) proctitis without complications (principal); K52.82 Eosinophilic colitis; E11.51 Type 2 diabetes mellitus with diabetic peripheral angiopathy without gangrene; E78.2 Mixed hyperlipidemia; K21.9 Gastro-esophageal reflux disease without esophagitis; K76.0 Fatty (change of) liver, not elsewhere classified; E03.9 Hypothyroidism, unspecified; Z79.620 Long term (current) use of immunosuppressive biologic; Z79.84 Long term (current) use of oral hypoglycemic drugs; Z79.4 Long term (current) use of insulin
CPT/HCPCS: 45331; 82948; 88305; J2704; J7120

== ENCOUNTER 2024-05-09 10:56 | Outpatient (CLI) | payer MEDICARE, SELFPAY ==
[2024-05-09 11:16] LABS: Hematocrit 41.7 % (37.0-47.0); Hemoglobin 13.5 g/dL (12.0-15.0); Mean Corpuscular HGB Conc 32.4 g/dl (32-36); Mean Corpuscular Hemoglobin 30.2 pg (26-34); Mean Corpuscular Volume 93.3 fl (80-100); Mean Platelet Volume 8.9 fl (7.4-10.4); Platelet Count Result 270 k/mm3 (150-375); Red Blood Count 4.47 M/mm3 (4.2-5.4); Red Cell Distribution Width 14.6 % (11.5-14.5)
[2024-05-09 11:30] LABS: Hemoglobin A1C 7.4 % (<5.7)
[2024-05-09 11:35] LABS: CRP < 0.5 mg/dL (<1.0)
[2024-05-09 12:00] LABS: Erythrocyte Sedimentation Rate 19 mm/hr (0-20)
== END 2024-05-09 10:57 | disposition home or self-care (01) ==
PROVIDERS: PCP Family Medicine; Visit Provider Nurse Practitioner
DX: E11.9 Type 2 diabetes mellitus without complications (principal); K51.00 Ulcerative (chronic) pancolitis without complications; R23.2 Flushing; Z79.899 Other long term (current) drug therapy
CPT/HCPCS: 36415; 83036; 85027; 85652; 86140

== ENCOUNTER 2024-05-12 09:08 | Outpatient (CLI) | payer MEDICARE, SELFPAY ==
[2024-05-17 19:48] LABS: Calprotectin, Stool 408 mcg/g
== END 2024-05-12 09:09 | disposition home or self-care (01) ==
LOC: ANHLAB 09:13
PROVIDERS: PCP Family Medicine; Visit Provider Nurse Practitioner
DX: K51.00 Ulcerative (chronic) pancolitis without complications (principal); Z79.899 Other long term (current) drug therapy
CPT/HCPCS: 83993

== ENCOUNTER 2024-10-31 11:47 | Outpatient (CLI) | payer MEDICARE, SELFPAY ==
--- OUTSIDE RECORDS SUMMARY | 2024-10-31 12:01 | XMS_ITS | Clinical Summary ---
Author Organization [facility] Address [address] [place] [address] Care Team Providers Care Insurance Broker Name Role Phone Suzy Carcamo MD Primary Care Provider + Source Comments [facility],non-owned Affiliates and Associated Physician Practices is amultiple site organization consisting of ambulatory clinics and hospital sitesin [place], [place], [place] and [place]. This disclosure is being madepursuant to the Care Everywhere program and may not contain all information available regarding this patient. Last updated 18.[facility] Allergies No known active allergies Medications * Be aware that medications may not be up to date on this document. Alwaysverify current medications with the patient. Medication Sig Dispensed Refills Start Date End Date Status JANUVIA 100 MG tablet Take 100 mg by mouth once daily 11/11/2021 Active levothyroxine (SYNTHROID) 50 MCG tablet Take 50 mcg by mouth once daily 09/30/2021 Active lisinopril (PRINIVIL; ZESTRIL) 20 MG tablet Take 20 mg by mouth once daily 07/03/2021 Active pantoprazole EC (PROTONIX) 40 MG tablet Take 40 mg by mouth at bedtime 10/03/2021 Active predniSONE (DELTASONE) 10 MG tablet 11/15/2021 Active estradiol (VIVELLE-DOT) 0.05 MG/24HR patch 10/25/2021 Active colestipol (COLESTID) 1 GM tablet Take 1 g by mouth 2 times daily 09/20/2021 Active aspirin (ASPIRIN) 81 MG chew tablet Take 81 mg by mouth once daily Active Inulin (FIBER CHOICE PO) Active Ferrous Sulfate (IRON PO) Active mesalamine EC (LIALDA) 1.2 g tablet 11/17/2021 Active Probiotic Product (PROBIOTIC-10 PO) Active VITAMIN D PO Active loperamide (IMODIUM) 2 MG capsule Take 2 mg by mouth once Active CRANBERRY PO Take by mouth at bedtime Active Uiuwcvo-Cuyqmluozg-Jkz guerrier D (CITRACAL +D3 PO) Active metoprolol tartrate (LOPRESSOR) 25 MG tablet Take 25 mg by mouth 2 times daily Active folic acid (FOLVITE) 1 MG tablet Take 1 mg by mouth once daily Active benzonatate (TESSALON) 100 MG capsule Take 100 mg by mouth 3 times daily as needed for Cough Active Social History Tobacco Use Types Packs/Day Years Used Date Smoking Tobacco: Never Smokeless Tobacco: Never Alcohol Use Standard Drinks/Week Comments Yes 1 (1 standard drink = 0.6 oz pur e alcohol) daily 4oz Sex and Gender Information Value Date Recorded Sex Assigned at Not on file Gender Identity Not on file Sexual Orientation Not on file Last Filed Vital Signs Vital Sign Reading Time Taken Comments Blood Pressure 151/72 12/07/2021 12:45 PM CDT Pulse 61 12/07/2021 12:45 PM CDT Temperature 36.7 C (98 F) 12/07/2021 12:07 PM CDT Respiratory Rate 16 12/07/2021 12:45 PM CDT Oxygen Saturation 99% 12/07/2021 12:45 PM CDT Inhaled Oxygen Concentration - - Weight 64.5 kg (142 lb 3.2 oz) 12/07/2021 11:18 AM CDT Height 160 cm (5' 3 ) 12/07/2021 11:18 AM CDT Body Mass Index 25.19 12/07/2021 11:18 AM CDT Plan of Treatment Health Maintenance Due Date Last Done Comments BONE DENSITY TESTING 1950 COLOGUARD (AGES 45-75) - COLON CA SCREENING 1949 COLON MONITORING 1949 COLONOSCOPY - COLON CA SCREENING 1949 CT COLONOGRAPHY - COLON CA SCREENING 1950 Colorectal Cancer Screening 1950 FIT - COLON CA SCREENING 1949 FLEX SIG - COLON CA SCREENING 1949 LIPID TESTING 1950 MAMMOGRAM 1950 HEPATITIS C SCREENING 12/30/1966 DTAP/TDAP/TD VACCINES (1 - Tdap) 01/04/1968 PNEUMOCOCCAL VACCINE 50+ (1 of 1 - PCV) 1999 ZOSTER VACCINE (1 of 2) 1999 Respiratory Syncytial Virus (RSV) Vaccine Pt: or over 60 yrs (1 - 1-dose 75+ series) 01/04/2024 COVID-19 VACCINE (3 - season) 2024 10/06/2020, 09/15/2020 DEPRESSION SCREENING 07/23/2024 MEDICARE AWV CALENDAR YEAR 2024 INFLUENZA VACCINE (Season Ended) 2025 04/29/2020, 05/19/2019, 03/29/2018, Additional history exists HEPATITIS B VACCINE Aged Out No longe r eligible based on patient's age to complete this topic HIB VACCINE Aged Out No longer eligi ble based on patient's age to complete this topic HPV VACCINE Aged Out No longer eligi ble based on patient's age to complete this topic MENINGOCOCCAL (Group B) VACCINE SHARED DECISION-MAKING Aged Out No longer eligible based on patient's age to complete this topic MENINGOCOCCAL GROUPS A/C/Y/W VACCINE Aged Out No longer eligible based on patient's age to complete this topic Care Teams Insurance Broker Relationship Specialty Start Date End Date Suzy Carcamo MD [address] [place] [address] PCP - General 08/24/22
--- OUTSIDE RECORDS SUMMARY | 2024-10-31 12:01 | XMS_ITS | Referral Summary ---
Author Organization [facility] [address] Address [address] [place] [address] Care Team Providers Care School Cleaner Name Role Phone Suzy Carcamo MD Primary Care Provider Allergies No known active allergies Social History Tobacco Use Types Packs/Day Years Used Date Smoking Tobacco: Never Assessed Personal Safety Answer Date Recorded Getting School Help Needed Not on file 10/06 Comments Unknown Sex and Gender Information Value Date Recorded Sex Assigned at Not on file Legal Sex Female 3:26 AM DENSITY CONTROL PUNCHER Gender Identity Not on file Sexual Orientation Not on file Plan of Treatment Not on file Insurance [facility] MEDICARE ADVANTAGE Care Teams School Cleaner Relationship Specialty Start Date End Date Suzy Carcamo MD [address] [facility] [address] [place] [address] PCP - General Family Medicine 04/29/21
--- OUTSIDE RECORDS SUMMARY | 2024-10-31 12:01 | XMS_ITS | Clinical Summary ---
Author Organization [facility] Address [address] [facility] [place] [address] Phone Care Team Providers Care English Composition Instructor Name Role Phone Suzy Carcamo MD Primary Care Provider [phone] Solomon Espinosa DPM Unavailable [phone] Allergies No known active allergies Medications lisinopril (PRINIVIL, ZESTRIL) 20 MG Tablet Take 1 Tablet by mouth every morning. 11 6 Active pantoprazole (PROTONIX) 40 MG Tablet Delayed Response Take 1 Tablet by mouth nightly. 0 7 Active Multiple Vitamins-Minera ls (MULTIVITAMIN PO) Take 1 Tab by mouth daily. Active Cranberry 500 MG Tablet Take 1 Tab by mouth daily. Active Probiotic Product (PROBIOTIC-10 PO) Take by mouth daily. 2 tablets every day Active SITagliptin-met FORMIN (JANUMET) 50-500 MG Tablet Take 1 Tab by mouth 2 times daily (with meals). Active estradiol (CLIMARA) 0.05 MG/24HR PATCH WEEKLY 1 Patch by Transdermal route. Twice a wk Active Ferrous Sulfate (IRON PO) Take by mouth daily. Active VITAMIN D PO Take by mouth. Ac tive levothyroxine (SYNTHROID) 25 MCG Tablet TAKE 1 TABLET BY MOUTH DAILY 90 Tab 1 0 Active Additional Information Patient taking differently: 50 mcg, Reported on 11/30/2020 Rkuht-Q-Wbdhzdn sidase (BEANO PO) Take by mouth as needed. Active loperamide (IMODIUM) 2 MG Capsule Take 2 mg by mouth as needed for Diarrhea. Active Calcium-Phospho ranjeet-Vitamin D (CITRACAL +D3 PO) Take by mouth daily. Active B Complex Vitamins (B COMPLEX PO) Take by mouth. Act phylicia FIBER PO Take by mouth. Activ e METOPROLOL-HCTZ 50-25 MG Tablet Take 1 Tablet by mouth daily. Active GLIMEPIRIDE PO Take by mouth. Active aspirin EC 81 MG Tablet Delayed Response Take 81 mg by mouth daily. Active colestipol (COLESTID) 1 GM TabletIndicatio ns:Chronic diarrhea Take 1 Tablet by mouth 2 times daily. 60 Tablet 3 2 Active Januvia 100 MG Tablet Take 100 mg by mouth daily. 2 Active PREDNISONE PO Take by mouth. 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 equinus of right lower extremity 0 10/04/2016 Gastrocnemius equinus of left lower extremity Pes planus of both feet 10/04/2016 Immunizations Immunization Administration Dates Next Due Covid-19, Mrna, Lnp-s, Pf, 3 0 Mcg/0.3 Ml Dose (Hello Universe) 10/06/2020,09/15/2020 Influenza Vaccine, MDCK,quad rivalent, pres free 04/29/2020 Influenza, High-dose, Quadrivalent 05/05/2021 Influenza, high-dose, trivalent, PF 04/23,03/29/2018,06/18/2017,2015 Pneumococcal Vaccine - 13 Valent 04/13/2016 Pneumococcal Vaccine Adult - 23 Valent 06/18/2017 Family History Medical History Relation Name Comments No Known Problems Father Hypertension Mother Stroke Mother Relation Name Status Comments Father Mother Social History Tobacco Use Types Packs/Day Years Used Date Smoking Tobacco: Never Smokeless Tobacco: Never Tobacco Cessation:Counseling Given: No Alcohol Use Standard Drinks/Week Comments Yes 0 (1 standard drink = 0.6 oz pur e alcohol) small cup of wine nightly Sexually Active Control Partners Comments Yes Male Comments No Sex and Gender Information Value Date Recorded Sex Assigned at Not on file Legal Sex Female 11:04 AM PAYROLL COORDINATOR Gender Identity Not on file Sexual Orientation Not on file Last Filed Vital Signs Vital Sign Reading Time Taken Comments Blood Pressure 144/86 06/10/2022 12:55 AM PAYROLL COORDINATOR Pulse 108 06/10/2022 12:55 AM PAYROLL COORDINATOR Temperature 37.4 C (99.4 F) 06/09/2022 11:13 PM PAYROLL COORDINATOR Respiratory Rate 20 06/10/2022 12:55 AM PAYROLL COORDINATOR Oxygen Saturation 98% 06/10/2022 12:55 AM PAYROLL COORDINATOR Inhaled Oxygen Concentration - - Weight 63.5 kg (140 lb) 06/09/2022 11:13 PM PAYROLL COORDINATOR Height 167.6 cm (5' 6 ) 06/09/2022 11:13 PM PAYROLL COORDINATOR Body Mass Index 22.6 06/09/2022 11:13 PM PAYROLL COORDINATOR Plan of Treatment Health Maintenance Due Date Last Done Comments Diabetes: Eye Exam 1950 Diabetes: Foot Exam 1950 Hepatitis C Virus (HCV) Screening 1950 TdaP Immunization 1949 Cologuard 1999 Immunochemical Fecal Occult Blood 1999 Zoster Immunization (1 of 2) 1999 Diabetes: Hemoglobin A1c 05/29/2019 11/26/2018, 03/0 02/2017 Colonoscopy 12/24/2022 12/24/2020, 01/20, 02/15/2017 Colorectal Cancer Screening 12/24/2022 Diabetes: Nephropathy Screening 06/09/2023 06/09/2022, 11/04/2019, 11/26/2018, Additional history exists Respiratory Syncytial Virus (RSV) Immunization (Adult) (1 - 1-dose 75+ series) 01/04/2024 Influenza Immunization (#1) 03/23/202403/23, 05/05/2021, 04/29/2020, Additional history exists SARS-COV-2 Immunization ( season) 2024 04/10/2022, 11/12/2021, 04/25/2021, Additional history exists 12/24/2020, 01/20, 02/15/2017 Pneumococcal Immunization (50+ years) Completed 06/18/2017, 04/13/2016 Pneumococcal Immunization Combined Discontinued 06/18/2017, 04/13/2016 Hepatitis B Immunization Aged Out No longer eligible based on patient's age to complete this topic Meningococcal Immunization (ACWY) Aged Out No longer eligible based on patient's age to complete this topic Rotavirus Immunization Aged Out No lo nger eligible based on patient's age to complete this topic Procedures Procedure Name Priority Date/Time Associated Diagnosis Comments CMP (COMPREHENSIVE METABOLIC PANEL) STAT 06/09/2022 11:44 PM PAYROLL COORDINATOR HEMOGLOBIN, A1C Routine 11/26/2018 HM COLONOSCOPY Routine 02/15/2017 from Last 3 Months or Most Recently Relevant to Health Maintenance Results * (ABNORMAL) CMP (06/09/2022 11:44 PM PAYROLL COORDINATOR) SODIUM 133(L) 136 - 144 mmol/L 06/10/2022 12:26 AM [facility] POTASSIUM 4.3 3.5 - 5.1 mmol/L 06/10/2022 12:26 AM [facility] CHLORIDE 97(L) 100 - 110 mmol/L 06/10/2022 12:26 AM [facility] CO2, VENOUS 23 22 - 32 mmol/L 06/10/2022 12:26 AM [facility] ANION GAP 17.3 8.0 - 20.0 mmol/L 06/10/2022 12:26 AM [facility] GLUCOSE 206(H) 70 - 99 mg/dL 06/10/2022 12:26 AM [facility] BUN 14 8 - 23 mg/dL 06/10/2022 12:26 AM [facility] CREATININE, BLOOD 0.65 0.60 - 1.10 mg/dL 06/10/2022 12:26 AM [facility] BUN/CREATININE RATIO 22(H) 12 - 20 ratio 06/10/2022 12:26 AM [facility] TOTAL PROTEIN 7.9 6.0 - 8.3 g/dL 06/10/2022 12:26 AM [facility] ALBUMIN 4.6 3.5 - 5.2 g/dL 06/10/2022 12:26 AM [facility] Comment: The colormetric methods used for the determination of Albumin may lead to falsely elevated test results in patients suffering from renal failure or insufficiency due to interference with other proteins. A/G RATIO 1.4 1.0 - 2.0 06/10/2022 12:26 AM [facility] CALCIUM 10.1 8.9 - 10.3 mg/dL 06/10/2022 12:26 AM [facility] T BILI 0.5 <=1.2 mg/dL 06/10/2022 12:26 AM [facility] SGOT (AST) 126(H) <=32 U/L 06/10/2022 12:26 AM [facility] SGPT (ALT) 93(H) <=41 U/L 06/10/2022 12:26 AM [facility] ALKALINE PHOSPHATASE 82 35 - 105 U/L 06/10/2022 12:26 AM [facility] GFR, ESTIMATED >60 >=60 06/10/2022 12:26 AM [facility] Comment: Creatinine Clearance is the preferred criteria for selecting drug dose adjustments in renally impaired patients. The GFR is provided as additional pertinent clinical information. GFR is reported in mL/min/1.73 sq m. Calculation based on the Chronic Kidney Disease Epidemiology Collaboration (CKD- EPI) equation refit without adjustment for race. GFR, EST. >60 >=60 022 12:26 AM [facility] GFR, EST. NONAFRICAN >60 >=60 06/10/2022 12:26 AM [facility] Blood Venipuncture / Unknown 06/09/2022 11:44 PM PAYROLL COORDINATOR 06/10/2022 12:00 AM PAYROLL COORDINATOR Mio White MD CHEMISTRY ORDERABLES Final Resu lt [facility] [address] [place] [address] * HEMOGLOBIN, A1C (11/26/2018) HGB-A1C 4.0 % Blood specimen (specimen) 11/26/2018 us Suzy Carcamo MD CHEMISTRY ORDERABLES Edite d Result - Final * COLONOSCOPY (02/15/2017) Suresh Aponte MD PROCEDURE/MINOR SURGICAL OR DERABLES Final Result from Last 3 Months or Most Recently Relevant to Health Maintenance Insurance MEDICARE C [facility] Advance Directives Documents on File Type Date Recorded Patient Residential Concierge Expl anation Other Advance Directive 10/27/2020 1:31 PM JANET Care Teams English Composition Instructor Relationship Specialty Start Date End Date Suzy Carcamo MD [address] [facility] [address] [place] [address] PCP - General Family Medicine 09/15/16 Solomon Espinosa DPM [address] [facility] [address] [place] [address] Consulting Physician Podiatry 09/27/16
--- OUTSIDE RECORDS SUMMARY | 2024-10-31 12:01 | XMS_ITS | Continuity of Care Document ---
Author Organization [facility] Address [address] [place] [address] [address] [place] [address] Phone Care Team Providers Care Screw Supervisor Name Role Phone Selvin Lau MD Unavailable Unavailable Procedures Procedure Date CATARACT SURG W/IOL, 1 STAGE OFFICE CONSULTATION OPHTHALMIC BIOMETRY OPHTHALMIC BIOMETRY Advance Directives Directive Yes / No Effective Date File Name No Information Encounters Encounter Description Practice Location Reason(s) For Visit Diagnoses Date Provider Providers Copied on Encounter [facility], [address] [place] [address], [address] [place] [address], tel:[phone] [facility] No Information 9 Sid Selvin. [address] [place] [address], [place], [facility], . tel:[phone] OFFICE CONSULTATION [facility], [address] [place] [address], [address] [place] [address], tel:[phone] [facility] No Information 0 9 Sid Selvin. [address] [place] [address] 201, [place], [address], [place]. tel:[phone] Family History Family Member Type Diagnosis Age At Onset No Information Payers Payer name Insurance type Covered alliance party ID Authorchonga jose(s) [facility] [id number] Social History Type Description Quantity Date Captured Comments Sex Female Smoking Status No Information Chief Complaint And Reason For Visit No Information Reason For Referral Reason For Referral No Information History Of Present Illness Encounter Date Complaint History Of Prese nt Illness No Information Functional Status Date Functional Assessmen t No Information Instructions Date Instruction Additional Infor mation No Information Assessments Type Assessment Date No Information Patient Care Teams Name Effective Dates (start - stop) Status Members No Information
--- OUTSIDE RECORDS SUMMARY | 2024-10-31 12:01 | XMS_ITS | Clinical Summary ---
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
[2024-10-31 12:19] LABS: Hematocrit 38.9 % (37.0-47.0); Hemoglobin 12.4 g/dL (12.0-15.0); Mean Corpuscular HGB Conc 31.9 g/dl (32-36); Mean Corpuscular Hemoglobin 29.4 pg (26-34); Mean Corpuscular Volume 92.2 fl (80-100); Platelet Count Result 248 k/mm3 (150-375); Red Blood Count 4.22 M/mm3 (4.2-5.4); Red Cell Distribution Width 14.9 % (11.5-14.5); White Blood Count 7.1 K/mm3 (4.5-10.0)
[2024-10-31 12:35] LABS: Alanine Aminotransferase 38 U/L (6-35); Albumin Level 4.2 g/dL (3.5-5.1); Alkaline Phosphatase 72 U/L (38-126); Anion Gap 8 mmol/L (4-12); Aspartate Amino Transferase 46 U/L (14-36); Bilirubin,Total 0.5 mg/dL (0.2-1.3); Blood Urea Nitrogen 13 mg/dL (7-17); CRP < 0.5 mg/dL (<1.0); Calcium 9.4 mg/dL (8.4-10.2); Carbon Dioxide 27 mmol/L (22-30); Chloride 105 mmol/L (98-107); Estimated Glomerular Filt Rate > 60; Glucose 143 mg/dL (65-110); Potassium 4.4 mmol/L (3.4-5.0); Sodium 140 mmol/L (137-145)
[2024-10-31 12:53] LABS: Erythrocyte Sedimentation Rate 20 mm/hr (0-20)
[2024-10-31 13:22] LABS: Hepatitis B Surface Antigen Negative (Negative)
[2024-10-31 13:39] LABS: Hepatitis B Surface Anti Res Negative
[2024-11-02 01:34] LABS: Hepatitis B Core Ab Total NON-REACTIVE (NON-REACTIVE)
[2024-11-04 12:39] LABS: NIL 0.01 IU/mL; Quantiferon TB Plus, 1T NEGATIVE (NEGATIVE)
== END 2024-10-31 11:48 | disposition home or self-care (01) ==
PROVIDERS: PCP Family Medicine; Visit Provider Nurse Practitioner
DX: K51.90 Ulcerative colitis, unspecified, without complications (principal); R19.7 Diarrhea, unspecified; R19.4 Change in bowel habit
CPT/HCPCS: 36415; 80053; 85027; 85652; 86140; 86480; 86704; 86706; 87340

== ENCOUNTER 2024-11-04 10:56 | Outpatient (CLI) | payer MEDICARE, SELFPAY ==
--- OUTSIDE RECORDS SUMMARY | 2024-11-04 12:14 | XMS_ITS | Referral Summary ---
Author Organization 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
--- OUTSIDE RECORDS SUMMARY | 2024-11-04 12:14 | XMS_ITS | Clinical Summary ---
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
--- OUTSIDE RECORDS SUMMARY | 2024-11-04 12:14 | XMS_ITS | Clinical Summary ---
Author Organization [employer] [facility] Address [address] [place] [address] Care Team Providers Care Lining Cementer Name Role Phone Suzy Carcamo MD Primary Care Provider + Source Comments [facility] [employer] [facility] [employer],non-owned Affiliates and Associated Physician Practices is amultiple site organization consisting of ambulatory clinics and hospital sitesin [place], [place], [place] and [place]. This disclosure is being madepursuant to the Care Everywhere program and may not contain all information available regarding this patient. Last updated 18.[employer] Allergies No known active allergies Medications * Be aware that medications may not be up to date on this document. Alwaysverify current medications with the patient. JANUVIA 100 MG tablet Take 100 mg [...] PO Take by mouth at bedtime Active Calcium-Phospho ranjeet-Vitamin D (CITRACAL +D3 PO) Active metoprolol tartrate [...] 0.6 oz pur e alcohol) daily 4oz Comments Unknown Sex and Gender Information Value Date Recorded Sex Assigned at Not on file Legal Sex Female 2:03 PM CDT Gender Identity Not on file Sexual Orientation [...] - 1-dose 75+ series) 01/04/2024 COVID-19 VACCINE ( - season) 2024 10/06/2020, 09/15/2020 DEPRESSION SCREENING [...] on patient's age to complete this topic Insurance [employer] AETNA MEDICARE ADV SELF PAY NO INSURANCE Member Subscriber Plan / Payer (Ef fective for All Dates) Name:Yelitza Lynch Member ID:Not on file Relation to Subscriber:Not on file Name:YELITZA LYNCH Subscriber ID:Not on file (Home) Address: [address] [place] [address] Payer ID:Not on file Group ID:Not on file Type:Self Pay Address: [place], [place] A[employer]NA MEDICARE ADV SELF PAY NO INSURANCE Member Subscriber Plan / Payer (Ef fective for All Dates) Name:LynchYelitza Rosita Member ID:Not on file Relation to Subscriber:Not on file Name:YELITZA LYNCH Subscriber ID:Not on file (Home) Address: [address] [place] [phone] Payer ID:Not on file Group ID:Not on file Type:Self Pay Address: [place], [place] [employer] MEDICARE ADV SELF PAY NO INSURANCE Member Subscriber Plan / Payer (Ef fective for All Dates) Name:Yelitza Lynch Member ID:Not on file Relation to Subscriber:Not on file Name:YELITZA LYNCH Subscriber ID:Not on file (Home) Address: [place] [address] Payer ID:Not on file Group ID:Not on file Type:Self Pay Address: [place], [place] Care Teams Lining Cementer Relationship Specialty Start Date End Date Suzy Carcamo MD [address] [place] [address] PCP - General 08/24/22
--- OUTSIDE RECORDS SUMMARY | 2024-11-04 12:14 | XMS_ITS | Continuity of Care Document ---
Author Organization [facility] Address [address] [place] [address] [address] [place] [address] Phone Care Team Providers Care Security Patrol Officer Name Role Phone Selvin Lau MD Unavailable Unavailable Procedures Procedure Date CATARACT SURG W/IOL, 1 STAGE OFFICE CONSULTATION OPHTHALMIC BIOMETRY OPHTHALMIC BIOMETRY Advance Directives Directive Yes / No Effective Date File Name No Information Encounters Encounter Description Practice Location Reason(s) For Visit Diagnoses Date Provider Providers Copied on Encounter [facility], [address] [place] [address], [address] [place] [address], tel:[phone] [facility] No Information 9 Sid Selvin. [address] [place] [address] [address], [place], [facility], . tel:[phone] OFFICE CONSULTATION [facility], [address] [place] [address], [address] [place] [address], tel:[phone] [facility] UZ[facility] Marie No Information 0 9 Sid Selvin. [address] [place] [address] 201, [place], [address], [place]. tel:[phone] Family History Family Member Type Diagnosis Age At Onset No Information Payers Payer name Insurance type Covered alliance party ID Authorchonga jose(s) [facility] [id number] Social History Type Description Quantity Date Captured [...]
== END 2024-11-04 10:57 | disposition home or self-care (01) ==
LOC: ANHLAB 10:57
PROVIDERS: PCP Family Medicine; Visit Provider Nurse Practitioner
DX: K51.00 Ulcerative (chronic) pancolitis without complications (principal)
CPT/HCPCS: 83993; 87045; 87427; 87449

== ENCOUNTER 2024-11-12 09:42 | Outpatient (CLI) | payer MEDICARE, SELFPAY ==
--- NOTE | ~2024-11-12 | MM_ITS ---
EXAMINATION: MM screening tia BI w cullen HISTORY: Screening TECHNIQUE: Craniocaudal and mediolateral oblique 3-D tomosynthesis images were obtained and synthetic 2-D images were generated. CAD analysis was submitted and interpreted. COMPARISON: Comparison to multiple prior studies sequentially, with oldest reviewed study dated 02/01. BREAST PARENCHYMAL COMPOSITION: Not dense: There are scattered areas of fibroglandular density. FINDINGS: There is no evidence of suspicious mass, calcification, or architectural distortion to sugg est malignancy in either breast. There has been no suspicious interval change. IMPRESSION: 1. No mammographic evidence of malignancy. 2. Recommend routine screening mammography in one year. BI-RADS Category 1: Negative Reviewed, dictated and finalized at location A.
--- OUTSIDE RECORDS SUMMARY | 2024-11-12 10:51 | XMS_ITS | Clinical Summary ---
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
--- OUTSIDE RECORDS SUMMARY | 2024-11-12 10:51 | XMS_ITS | Clinical Summary ---
Author Organization [facility] Address [address] [facility] [place] [address] Phone Care Team Providers Care Wrapper Stripper Name Role Phone Suzy Carcamo MD Primary Care Provider [phone] Solomon Espinosa DPM Unavailable [phone] Allergies No known active allergies Medications [...] taking differently: 50 mcg, Reported on 11/30/2020 Lxajp-L-Jyegwjm sidase (BEANO PO) Take by mouth as [...] Lnp-s, Pf, 3 0 Mcg/0.3 Ml Dose ([employer]) 10/06/2020,09/15/2020 Influenza Vaccine, MDCK,quad rivalent, pres free [...] on file Legal Sex Female 11:04 AM ACCOUNTING MACHINE MECHANIC Gender Identity Not on file Sexual Orientation Not on file Last Filed Vital Signs Vital Sign Reading Time Taken Comments Blood Pressure 144/86 06/10/2022 12:55 AM ACCOUNTING MACHINE MECHANIC Pulse 108 06/10/2022 12:55 AM ACCOUNTING MACHINE MECHANIC Temperature 37.4 C (99.4 F) 06/09/2022 11:13 PM ACCOUNTING MACHINE MECHANIC Respiratory Rate 20 06/10/2022 12:55 AM ACCOUNTING MACHINE MECHANIC Oxygen Saturation 98% 06/10/2022 12:55 AM ACCOUNTING MACHINE MECHANIC Inhaled Oxygen Concentration - - Weight 63.5 kg (140 lb) 06/09/2022 11:13 PM ACCOUNTING MACHINE MECHANIC Height 167.6 cm (5' 6 ) 06/09/2022 11:13 PM ACCOUNTING MACHINE MECHANIC Body Mass Index 22.6 06/09/2022 11:13 PM ACCOUNTING MACHINE MECHANIC Plan of Treatment Health Maintenance Due Date [...] (COMPREHENSIVE METABOLIC PANEL) STAT 06/09/2022 11:44 PM ACCOUNTING MACHINE MECHANIC HEMOGLOBIN, A1C Routine 11/26/2018 HM COLONOSCOPY Routine 02/15/2017 from Last 3 Months or Most Recently Relevant to Health Maintenance Results * (ABNORMAL) CMP (06/09/2022 11:44 PM ACCOUNTING MACHINE MECHANIC) SODIUM 133(L) 136 - 144 mmol/L 06/10/2022 12:26 AM [facility] POTASSIUM 4.3 3.5 - 5.1 mmol/L 06/10/2022 12:26 AM [facility] CHLORIDE 97(L) 100 - 110 mmol/L 06/10/2022 12:26 AM [facility] CO2, VENOUS 23 22 - 32 mmol/L 06/10/2022 12:26 AM [facility] ANION GAP 17.3 8.0 - 20.0 mmol/L 06/10/2022 12:26 AM [facility] GLUCOSE 206(H) 70 - 99 mg/dL 06/10/2022 12:26 AM [facility] BUN 14 8 - 23 mg/dL 06/10/2022 12:26 AM [facility] CREATININE, BLOOD 0.65 0.60 - 1.10 mg/dL 06/10/2022 12:26 AM [facility] BUN/CREATININE RATIO 22(H) 12 - 20 ratio 06/10/2022 12:26 AM [facility] TOTAL PROTEIN 7.9 6.0 - 8.3 g/dL 06/10/2022 12:26 AM [facility] ALBUMIN 4.6 3.5 - 5.2 g/dL 06/10/2022 12:26 AM [facility] Comment: The colormetric methods used for the determination of Albumin may lead to falsely elevated test results in patients suffering from renal failure or insufficiency due to interference with other proteins. A/G RATIO 1.4 1.0 - 2.0 06/10/2022 12:26 AM [facility] CALCIUM 10.1 8.9 - 10.3 mg/dL 06/10/2022 12:26 AM [facility] T BILI 0.5 <=1.2 mg/dL 06/10/2022 12:26 AM [facility] SGOT (AST) 126(H) <=32 U/L 06/10/2022 12:26 AM [facility] SGPT (ALT) 93(H) <=41 U/L 06/10/2022 12:26 AM [facility] ALKALINE PHOSPHATASE 82 35 - 105 U/L 06/10/2022 12:26 AM [facility] GFR, ESTIMATED >60 >=60 06/10/2022 12:26 AM [facility] Comment: Creatinine Clearance is the preferred criteria for selecting drug dose adjustments in renally impaired patients. The GFR is provided as additional pertinent clinical information. GFR is reported in mL/min/1.73 sq m. Calculation based on the Chronic Kidney Disease Epidemiology Collaboration (CKD- EPI) equation refit without adjustment for race. GFR, EST. >60 >=60 022 12:26 AM [facility] GFR, EST. NONAFRICAN >60 >=60 06/10/2022 12:26 AM [facility] Blood Venipuncture / Unknown 06/09/2022 11:44 PM ACCOUNTING MACHINE MECHANIC 06/10/2022 12:00 AM ACCOUNTING MACHINE MECHANIC Mio White MD CHEMISTRY ORDERABLES Final Resu lt [facility] [address] [place] [address] * HEMOGLOBIN, A1C (11/26/2018) HGB-A1C 4.0 % Blood specimen (specimen) 11/26/2018 us Suzy Carcamo MD CHEMISTRY ORDERABLES Edite d Result - Final * COLONOSCOPY (02/15/2017) Suresh Aponte MD PROCEDURE/MINOR SURGICAL OR DERABLES Final Result from Last 3 Months or Most Recently Relevant to Health Maintenance Insurance MEDICARE C [facility] Advance Directives Documents on File Type Date Recorded Patient Regeneration Operator Expl anation Other Advance Directive 10/27/2020 1:31 PM JANET Care Teams Wrapper Stripper Relationship Specialty Start Date End Date Suzy Carcamo MD [address] [facility] [address] [place] [address] PCP - General Family Medicine 09/15/16 Solomon Espinosa DPM [address] [place] [address] [place] [address] Consulting Physician Podiatry 09/27/16
--- OUTSIDE RECORDS SUMMARY | 2024-11-12 10:51 | XMS_ITS | Continuity of Care Document ---
Author Organization [facility] Address [address] [place] [address] [address] [place] [address] Phone Care Team Providers Care Surveyor Instrument Assistant Name Role Phone Selvin Lau MD Unavailable Unavailable Procedures Procedure Date CATARACT SURG W/IOL, 1 STAGE OFFICE CONSULTATION OPHTHALMIC BIOMETRY OPHTHALMIC BIOMETRY Advance Directives Directive Yes / No Effective Date File Name No Information Encounters Encounter Description Practice Location Reason(s) For Visit Diagnoses Date Provider Providers Copied on Encounter [facility], [address] [place] [address], [address] [place] [address], tel:[phone] [facility] No Information 9 Sid Selvin. [address] [place] [address], [place], [facility], . tel:[phone] OFFICE CONSULTATION [facility], [address] [place] [address], [address] [place] [address], tel:[phone] [facility] Marie No Information 0 9 Sid Selvin. [address] [place] [address] 201, [place], [address], [place]. tel:[phone] Family History Family Member Type Diagnosis Age At Onset No Information Payers Payer name Insurance type Covered democrat ID Authorchonga jose(s) [facility] [id number] Social History Type Description Quantity Date Captured [...]
--- OUTSIDE RECORDS SUMMARY | 2024-11-12 10:51 | XMS_ITS | Clinical Summary ---
Author Organization [facility] [employer] Address [address] [place] [address] Care Team Providers Care Boiler Repairman Name Role Phone Suzy Carcamo MD Primary Care Provider + Source Comments [facility] [employer],non-owned Affiliates and Associated Physician Practices is amultiple site organization consisting of ambulatory clinics and hospital sitesin [place], [place], [place] and [place]. This disclosure is being madepursuant to the Care Everywhere program and may not contain all information available regarding this patient. Last updated 18.[employer] [facility] Allergies No known active allergies Medications * [...] season) 2024 10/06/2020, 09/15/2020 DEPRESSION SCREENING 07/23/2024 INFLUENZA VACCINE (Season Ended) 2025 04/29/2020, 05/19/2019, [...] LYNCH Subscriber ID:Not on file (Home) Address: [address] [place] [phone] Payer ID:Not on file Group ID:Not on file Type:Self Pay Address: [place], [place] [employer] MEDICARE ADV SELF PAY NO INSURANCE Member Subscriber Plan / Payer (Ef fective for All Dates) Name:Yelitza Lynch Member ID:Not on file Relation to Subscriber:Not on file Name:YELITZA LYNCH Subscriber ID:Not on file (Home) Address: [address] [place] [address] Payer ID:Not on file Group ID:Not on file Type:Self Pay Address: [place], [place] [employer] MEDICARE ADV SELF PAY NO INSURANCE Member Subscriber Plan / Payer (Ef fective for All Dates) Name:Yelitza Lynch Member ID:Not on file Relation to Subscriber:Not on file Name:YELITZA LYNCH Subscriber ID:Not on file (Home) Address: [address] [place] [address] Payer ID:Not on file Group ID:Not on file Type:Self Pay Address: [place], [place] Care Teams Boiler Repairman Relationship Specialty Start Date End Date Suzy Carcamo MD [address] [place] [address] PCP - General 08/24/22
--- OUTSIDE RECORDS SUMMARY | 2024-11-12 10:51 | XMS_ITS | Referral Summary ---
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 [address] [place] [address] Care Teams Mounter Clarinets Relationship Specialty Start Date End Date Suzy Carcamo MD [address] [facility] [address] [place] [address] PCP - General Family Medicine 04/29/21
== END 2024-11-12 09:43 | disposition home or self-care (01) ==
LOC: ANHIMG 09:44
PROVIDERS: PCP Family Medicine; Visit Provider Family Medicine
DX: Z12.31 Encounter for screening mammogram for malignant neoplasm of breast (principal)
CPT/HCPCS: 77063; 77067